=== PATIENT | male | born 1995 | race Two or more races ===

== ENCOUNTER 2024-10-25 11:13 | Emergency (ER) | payer OTHER ==
[~2024-10-25] VITALS: Ht 172.7 cm; Wt 72.6 kg
[2024-10-25 11:14] VITALS: BP 111/68; TEMP 98.3
[2024-10-25] MEDS ORDERED: KETOROLAC TROMETHAMINE INJ 30 MG/ML VIAL ONE (12:00)
[2024-10-25] MEDS: MUPIROCIN OINT 2% 22 GM TUBE TP ONE (12:00)
[2024-10-25] MEDS ORDERED: LORAZEPAM INJ 2 MG/ML VIAL ONE (12:00)
[2024-10-25] MEDS: LORAZEPAM INJ 2 MG/ML VIAL IM ONE (12:05)
[2024-10-25] MEDS: KETOROLAC TROMETHAMINE INJ 30 MG/ML VIAL IM ONE (12:06)
[2024-10-25] MEDS ORDERED: BACI28.43 TP (12:20)
[2024-10-25 12:43] VITALS: O2SAT 99
== END 2024-10-25 12:43 | disposition home or self-care (01) ==
LOC: ER 11:18
DX: T23.102A Burn of first degree of left hand, unspecified site, initial encounter (principal); T24.102A Burn of first degree of unspecified site of left lower limb, except ankle and foot, initial encounter; T31.0 Burns involving less than 10% of body surface; Z60.2 Problems related to living alone; X08.8XXA Exposure to other specified smoke, fire and flames, initial encounter; Y93.89 Activity, other specified; Y92.89 Other specified places as the place of occurrence of the external cause; Y99.8 Other external cause status
CPT/HCPCS: 99284; 16020; 96372 ×2; J1885; J2060; A4217